=== PATIENT | male | born 1995 | race Two or more races ===

== ENCOUNTER 2021-05-10 04:21 | Emergency (ER) | payer OTHER ==
[~2021-05-10] VITALS: Ht 175.3 cm; Wt 99.8 kg
[2021-05-10 04:41] VITALS: BP 152/99
--- NOTE | 2021-05-10 04:45 | NUR ---
PT BIB [employer] C/O BEING EXPOSED TO COVID SEPT 17. PT ALERT AND ORIENTED X4. AMBULATORY WITH NON LABORED BREATHING. V/S STABLE NO S/SX
--- NOTE | 2021-05-10 04:52 | NUR ---
Flor skaggs in [facility] - 05/10/21 at 0453 by CLAUDIA SWAB DONE AND SENT TO LAB
--- NOTE | 2021-05-10 04:53 | NUR ---
COVID SWAB DONE AND SENT TO LAB
== END 2021-05-10 05:49 ==
LOC: ER 04:24
DX: Z20.822 Contact with and (suspected) exposure to COVID-19 (principal); R03.0 Elevated blood-pressure reading, without diagnosis of hypertension
CPT/HCPCS: 87426; 99283; C9803